=== PATIENT | female | born 1990 | race Two or more races ===

== ENCOUNTER 2021-03-21 19:14 | Emergency (ER) | payer MEDICAID ==
[~2021-03-21] VITALS: Ht 167.6 cm; Wt 55.3 kg
--- NOTE | 2021-03-21 19:40 | NUR ---
UPON TRIAGE, PT O2 SATURATION 100%
--- NOTE | 2021-03-21 20:35 | NUR ---
AT BEDSIDE WITH PT
[2021-03-21] MEDS ORDERED: INSULIN REGULAR, HUMAN 100 UNIT/ML 10 ML VIAL ONE (21:09)
[2021-03-21] MEDS ORDERED: LEVO50TA PO (21:20)
[2021-03-21] MEDS ORDERED: *INS REG3 SUBCUT (21:20)
[2021-03-21] MEDS ORDERED: INSULIN REGULAR, HUMAN 100 UNIT/ML 10 ML VIAL SQ ONE (21:30)
--- NOTE | 2021-03-21 21:33 | NUR ---
PATIENT SIGNED AMA, DOES NOT WANT TO WAIT UNTIL SUGAR LEVEL IS DECREASED. MD AWARE. PT WAS ADVISED TO STAY UNTIL LEVEL NORMALIZES. PT STATES SHE KNOWS THE EFFECTS OF LEAVING WITHOUT STAYING AND AGREED TO SEEK MEDICAL ATTENTION IF SYMPTOMS WORSEN.
[2021-03-21 21:36] VITALS: BP 120/77
== END 2021-03-21 21:37 | disposition home or self-care (01) ==
LOC: ER 19:22
DX: E10.9 Type 1 diabetes mellitus without complications (principal); Z76.0 Encounter for issue of repeat prescription; E03.9 Hypothyroidism, unspecified; Z79.899 Other long term (current) drug therapy; Z79.4 Long term (current) use of insulin
CPT/HCPCS: 96372; 99283; J1815

== ENCOUNTER 2021-05-23 07:42 | Emergency (ER) | payer MEDICAID ==
[~2021-05-23] VITALS: Ht 167.6 cm; Wt 55.3 kg
[~2021-05-23 07:42] MED LIST: *INS REG3 SUBCUT; LEVO50TA PO
[2021-05-23 07:49] VITALS: BP 115/80
[2021-05-23] MEDS ORDERED: *INS REG3 IJ (08:25)
[2021-05-23] MEDS ORDERED: NPH,100V2 SQ (08:25)
[2021-05-23] MEDS ORDERED: SYRI1DIS86 MC (08:31)
== END 2021-05-23 08:36 | disposition home or self-care (01) ==
LOC: ER 07:44
DX: E11.9 Type 2 diabetes mellitus without complications (principal); Z76.0 Encounter for issue of repeat prescription; Z79.899 Other long term (current) drug therapy; Z79.4 Long term (current) use of insulin
CPT/HCPCS: 82962-TC

== ENCOUNTER 2021-06-20 09:43 | Emergency (ER) | payer MEDICAID ==
[~2021-06-20] VITALS: Ht 167.6 cm; Wt 55.3 kg
[~2021-06-20 09:43] MED LIST changes: +*INS REG3 IJ; +NPH,100V2 SQ; +SYRI1DIS86 MC
--- NOTE | 2021-06-20 10:11 | NUR ---
[id number] FROM HOME C/O HEADACHE, BODYACHE, SORETHROAT, VOMITING STARTED LAST NIGH. COVID TEST WAS NEGATIVE LAST NIGHT. VITAL ARE WITHIN NORMAL LIMITS. BREATHING IS EVEN AND UNLABORED. DR GALLEGOS AT BEDSIDE
[2021-06-20] MEDS ORDERED: ONDANSETRON HCL/PF 4 MG/2 ML VIAL ONE (10:21)
--- NOTE | 2021-06-20 10:21 | NUR ---
IV ESTABLISH L AC 20G, LABS WERE DRAWN AND SENT.
--- NOTE | 2021-06-20 10:26 | NUR ---
URINE COLLECTED AND SENT TO LAB
--- NOTE | 2021-06-20 10:26 | NUR ---
COVID SWAB DONE AND FLU SWAB DONE AND SENT
[2021-06-20] MEDS ORDERED: KETOROLAC TROMETHAMINE INJ 30 MG/ML VIAL IV ONE (10:30)
[2021-06-20] MEDS ORDERED: IV NS 0.9% 1,000 ML BAG IV ONE ×2 (10:30→12:00)
[2021-06-20] MEDS ORDERED: ONDANSETRON HCL/PF 4 MG/2 ML VIAL IVP ONE (10:30)
[2021-06-20] MEDS ORDERED: KETOROLAC TROMETHAMINE INJ 30 MG/ML VIAL ONE (10:41)
[2021-06-20 11:03] LABS: BASOPHILS % (AUTO) 0.7 % (0.0-2.0); EOSINOPHILS % (AUTO) 2.9 % (0.0-6.0); HEMATOCRIT 41 % (33-45); HEMOGLOBIN 13.6 g/dL (11.5-14.8); LYMPHOCYTES # (AUTO) 0.3 K/uL (0.8-4.8); LYMPHOCYTES % (AUTO) 7.5 % (20.0-44.0); MEAN CORPUSCULAR HGB CONC 34 g/dl (31.0-36.0); MEAN CORPUSCULAR VOLUME 93 fL (82-100); MONOCYTES # (AUTO) 0.5 K/uL (0.1-1.30); MONOCYTES % (AUTO) 12.3 % (2.0-12.0); NEUTROPHILS % (AUTO) 76.6 % (43.0-81.0); PLATELET COUNT (AUTO) 181 K/uL (150-450); RED BLOOD CELL COUNT(AUTO) 4.35 MIL/uL (4.0-5.2)
[2021-06-20 11:04] LABS: BILIRUBIN,URINE NEGATIVE (NEGATIVE); COLOR,URINE YELLOW (YELLOW); LEUKOCYTE ESTERASE ,URINE NEGATIVE (NEGATIVE); NITRITE, URINE NEGATIVE (NEGATIVE); PROTEIN,URINE NEGATIVE (NEGATIVE); UGLUCOSE 100 MG/DL mg/dL (NEGATIVE); UROBILINOGEN,URINE 0.2 EU/dL (0.2)
[2021-06-20 11:18] LABS: BILIRUBIN,DIRECT 0.2 mg/dL (0.0-0.2); BILIRUBIN,TOTAL 0.6 mg/dL (0.2-1.0); CALCIUM, SERUM 8.8 mg/dL (8.5-10.1); CREATININE 0.8 mg/dL (0.6-1.3); POTASSIUM 4.6 mmol/L (3.5-5.1); TOTAL PROTEIN, SERUM 7.9 g/dL (6.4-8.2)
[2021-06-20 11:23] LABS: RBC,URINE 0-2 /HPF (0-2); WBC,URINE 0-2 /HPF (0-3)
[2021-06-20 11:24] LABS: BACTERIA,URINE Moderate /HPF (None Seen); SQUAMOUS EPITHELIAL CELL,UR Moderate /HPF (None Seen)
--- NOTE | 2021-06-20 11:27 | NUR ---
COVID PCR COLLECTED AND SENT
--- NOTE | 2021-06-20 11:50 | NUR ---
PT COVID RESULT POSITIVE (+) DR. GALLEGOS AWARE
--- NOTE | 2021-06-20 11:50 | NUR ---
PT STREP TEST COLLECTED AND SENT TO LAB
[2021-06-20] MEDS ORDERED: ONDA4TAB5 PO (11:54)
[2021-06-20] MEDS ORDERED: AZIT250T PO (11:54)
--- NOTE | 2021-06-20 12:07 | NUR ---
PT SIGNED DC PAPER'S. VERBALIZED UNDERSTANDING OF D/C.
--- NOTE | 2021-06-20 12:53 | NUR ---
IV removed. Catheter intact and site benign. Pressure and 4x4 applied to site. No bleeding noted.
[2021-06-20 12:54] VITALS: BP 121/76
--- NOTE | 2021-06-22 13:13 | NUR ---
RECEIVED CALL FROM LAB STATING THAT THE PATIENT IS COVID POSITVE. CALLED THE PATIENT AND MADE HER AWARE. EDUCATION PROVIDED AND THE PATIENT VERBALIZED UNDERSTANDING.
== END 2021-06-20 12:54 | disposition home or self-care (01) ==
LOC: ER 09:46
DX: U07.1 COVID-19 (principal); J02.9 Acute pharyngitis, unspecified; E10.65 Type 1 diabetes mellitus with hyperglycemia; Z79.4 Long term (current) use of insulin; E86.0 Dehydration
CPT/HCPCS: 36415; 80048; 80076; 81001; 84703; 85025; 87070; 87086; 87426; 87804; 87880; 96361; 96374; 96375; 99284; C9803 ×2; J1885; J2405; J7030; U0003; 86403-TC

== ENCOUNTER 2021-07-27 17:39 | Emergency (ER) | payer MEDICAID ==
[~2021-07-27] VITALS: Ht 167.6 cm; Wt 55.3 kg
[~2021-07-27 17:39] MED LIST changes: +AZIT250T PO; +ONDA4TAB5 PO
--- NOTE | 2021-07-27 17:49 | NUR ---
EPIGASTRIC PAIN (BURNING) SINCE THIS MORNING TOOK PANTOPRAZOLE WITH NO RELIEF. VITALS ARE WITHIN NORMAL LIMITS. BREATHING IS EVEN AND UNLABORED.
[2021-07-27] MEDS ORDERED: HYDROCODONE/APAP 5/325MG TABLET PO ONE (18:30)
--- NOTE | 2021-07-27 18:31 | NUR ---
URINE COLLECTED AND SENT
[2021-07-27] MEDS ORDERED: HYDROCODONE/APAP 5/325MG TABLET ONE (18:47)
--- NOTE | 2021-07-27 18:59 | NUR ---
IV ESTABLISH R AC 22G. LABS COLLECTED AND SENT.
[2021-07-27 19:27] LABS: BILIRUBIN,URINE NEGATIVE (NEGATIVE); COLOR,URINE YELLOW (YELLOW); LEUKOCYTE ESTERASE ,URINE NEGATIVE (NEGATIVE); NITRITE, URINE POSITIVE (NEGATIVE); PROTEIN,URINE NEGATIVE (NEGATIVE); UGLUCOSE NEGATIVE (NEGATIVE); UROBILINOGEN,URINE 0.2 EU/dL (0.2)
[2021-07-27] MEDS ORDERED: IV NS 0.9% 1,000 ML IV ONE (19:30)
[2021-07-27] MEDS ORDERED: ONDANSETRON HCL/PF 4 MG/2 ML VIAL IV ONE (19:30)
[2021-07-27 19:38] LABS: BACTERIA,URINE 1+ /HPF (None Seen); RBC,URINE 0-2 /HPF (0-2); URINE AMORPHOUS PHOSPHATES Many /HPF (None Seen); WBC,URINE 0-2 /HPF (0-3)
[2021-07-27 19:40] LABS: CALCIUM, SERUM 9.3 mg/dL (8.5-10.1); CREATININE 0.6 mg/dL (0.6-1.3); POTASSIUM 4.1 mmol/L (3.5-5.1)
[2021-07-27 19:46] LABS: BASOPHILS # (AUTO) 0.1 K/uL (0.0-0.2); BASOPHILS % (AUTO) 0.8 % (0.0-2.0); EOSINOPHILS % (AUTO) 2.8 % (0.0-6.0); HEMATOCRIT 39 % (33-45); HEMOGLOBIN 13.9 g/dL (11.5-14.8); LYMPHOCYTES # (AUTO) 1.8 K/uL (0.8-4.8); LYMPHOCYTES % (AUTO) 24.6 % (20.0-44.0); MEAN CORPUSCULAR HGB CONC 35 g/dl (31.0-36.0); MEAN CORPUSCULAR VOLUME 90 fL (82-100); MONOCYTES # (AUTO) 0.4 K/uL (0.1-1.30); NEUTROPHILS # (AUTO) 4.9 K/uL (1.8-8.9); NEUTROPHILS % (AUTO) 65.8 % (43.0-81.0); PLATELET COUNT (AUTO) 234 K/uL (150-450); RED BLOOD CELL COUNT(AUTO) 4.37 MIL/uL (4.0-5.2); WHITE BLOOD COUNT (AUTO) 7.5 K/uL (4.3-11.0)
[2021-07-27 19:47] LABS: ALBUMIN 3.8 g/dL (3.4-5.0); BILIRUBIN,DIRECT 0.1 mg/dL (0.0-0.2); BILIRUBIN,TOTAL 0.3 mg/dL (0.2-1.0); TOTAL PROTEIN, SERUM 7.8 g/dL (6.4-8.2)
--- NOTE | 2021-07-27 19:52 | NUR ---
ULTRASOUND AT BEDSIDE
[2021-07-27] MEDS ORDERED: CEPH500C2 PO (20:30)
[2021-07-27] MEDS ORDERED: FAMO-131 PO (20:31)
[2021-07-27] MEDS ORDERED: ONDA4TAB5 PO (20:33)
[2021-07-27] MEDS ORDERED: ACET-2605 PO (20:34)
--- NOTE | 2021-07-27 20:51 | NUR ---
Patient discharged to home in stable condition. Written and verbal after care instructions given. Patient verbalizes understanding of instruction.IV removed. Catheter intact and site benign. Pressure and 4x4 applied to site. No bleeding noted. Pt ambulatory with a steady gait
[2021-07-27 20:54] VITALS: BP 118/80
== END 2021-07-27 20:54 | disposition home or self-care (01) ==
LOC: ER 17:55
DX: K21.9 Gastro-esophageal reflux disease without esophagitis (principal); N39.0 Urinary tract infection, site not specified; E10.9 Type 1 diabetes mellitus without complications; Z79.899 Other long term (current) drug therapy; Z79.4 Long term (current) use of insulin
CPT/HCPCS: 36415; 76700; 80053; 80076; 81001; 83690; 84703; 85025; 87086; 96360; 99284; J7030

== ENCOUNTER 2022-07-04 22:26 | Emergency (ER) | payer MEDICAID ==
[~2022-07-04 22:26] MED LIST changes: +ACET-2605 PO; -AZIT250T PO; +CEPH500C2 PO; +FAMO-131 PO
--- NOTE | 2022-07-04 22:55 | NUR ---
[facility] CALLED TO TRIAGE NO ANSWER
--- NOTE | 2022-07-04 23:15 | NUR ---
PATIENT NOT IN WAITING ROOM
== END 2022-07-04 23:15 | disposition left against medical advice (07) ==
LOC: ER 22:28
DX: Z53.21 Procedure and treatment not carried out due to patient leaving prior to being seen by health care provider (principal)

== ENCOUNTER 2022-08-25 10:59 | Emergency (ER) | payer MEDICAID ==
[~2022-08-25] VITALS: Ht 165.1 cm; Wt 54.4 kg
[2022-08-25 11:54] LABS: BILIRUBIN,URINE NEGATIVE (NEGATIVE); COLOR,URINE DARK YELLOW (YELLOW); LEUKOCYTE ESTERASE ,URINE 2+ (NEGATIVE); NITRITE, URINE NEGATIVE (NEGATIVE); PROTEIN,URINE NEGATIVE (NEGATIVE); UGLUCOSE NEGATIVE (NEGATIVE); UROBILINOGEN,URINE 0.2 EU/dL (0.2)
[2022-08-25 12:37] LABS: BACTERIA,URINE None seen /HPF (None Seen); RBC,URINE 51-80 /HPF (0-2); SQUAMOUS EPITHELIAL CELL,UR Rare /HPF (None Seen)
[2022-08-25] MEDS ORDERED: CLIN300C12 PO (12:55)
[2022-08-25] MEDS ORDERED: CLIN40CR VG (12:55)
[2022-08-25 13:04] VITALS: BP 118/69
--- NOTE | 2022-08-25 13:05 | NUR ---
Patient discharged to home in stable condition. Written and verbal after care instructions given. Patient verbalizes understanding of instruction.
== END 2022-08-25 13:05 | disposition home or self-care (01) ==
LOC: ER 11:10
DX: N76.0 Acute vaginitis (principal); Z79.899 Other long term (current) drug therapy
CPT/HCPCS: 81001; 84703-TC; 87086-TC